=== PATIENT | female | born 1960 | race Asian ===

== ENCOUNTER 2016-08-17 04:19 | Emergency (ER) | payer OTHER ==
[~2016-08-17] VITALS: Ht 160 cm; Wt 54.4 kg
[2016-08-17 04:38] VITALS: BP_SYST 143
[2016-08-17 05:04] LABS: BASOPHILS % (AUTO) 0.9 % (0.0-2.0); EOSINOPHILS # (AUTO) 0.2 K/uL (0.0-0.4); EOSINOPHILS % (AUTO) 2.9 % (0.0-4.0); HEMATOCRIT 38.3 % (36-48); HEMOGLOBIN 12.6 g/dL (12.0-16.0); LYMPHOCYTES # (AUTO) 2.6 K/uL (1.0-5.5); LYMPHOCYTES % (AUTO) 49.3 % (20.5-51.5); MEAN CORPUSCULAR HEMOGLOBIN 31 pg (27-31); MEAN CORPUSCULAR HGB CONC 33 % (32-36); MEAN CORPUSCULAR VOLUME 93 fL (79.0-98.0); MONOCYTES # (AUTO) 0.3 K/uL (0.0-1.0); MONOCYTES % (AUTO) 6.4 % (1.7-9.3); NEUTROPHILS # (AUTO) 2.2 K/uL (1.8-7.7); NEUTROPHILS % (AUTO) 40.5 % (40.0-70.0); PLATELET COUNT (AUTO) 265 K/uL (130-430); RED BLOOD CELL COUNT(AUTO) 4.12 MIL/uL (4.2-6.2); RED CELL DISTRIBUTION WIDTH 12.2 % (9.0-15.0); WHITE BLOOD COUNT (AUTO) 5.3 K/uL (4.8-10.8)
[2016-08-17 05:10] LABS: ANION GAP 5 (5-15); CHLORIDE 108 mmol/L (98-107); CREATININE 0.64 mg/dL (0.55-1.30); GLUCOSE 108 mg/dL (70-99); POTASSIUM 3.9 mmol/L (3.5-5.1); SODIUM SERUM 143 mmol/L (136-145); UREA NITROGEN, BLOOD 12 mg/dL (8-21)
[2016-08-17 05:18] LABS: ALANINE AMINOTRANSFERASE 31 U/L (12-78); ALBUMIN 3.5 g/dL (3.4-4.8); ASPARTATE AMINOTRANSFERASE 23 U/L (10-37); TOTAL BILIRUBIN 0.4 mg/dL (0.0-1.0); TOTAL PROTEIN, SERUM 6.7 g/dL (6.4-8.3)
[2016-08-17 05:19] LABS: GFR AFRICAN AMERICAN 124 mL/min (>90)
[2016-08-17] MEDS: PROCHLORPERAZINE EDISYLATE 10 MG/2 ML VIAL IVP ONE (05:23)
[2016-08-17] MEDS: LORazepam 2 MG/ML VIAL (FOR ER USE) IVP ONE (05:23)
[2016-08-17] MEDS: ACETAMINOPHEN 500 MG TABLET PO ONE (05:23)
[2016-08-17] MEDS: NACL 0.9% 1,000 ML IV ONE (05:24)
[2016-08-17 06:10] VITALS: BP_SYST 140
== END 2016-08-17 06:10 | disposition home or self-care (01) ==
LOC: SED 04:19
DX: G44.209 Tension-type headache, unspecified, not intractable (principal); B34.9 Viral infection, unspecified; F41.9 Anxiety disorder, unspecified; E78.5 Hyperlipidemia, unspecified
CPT/HCPCS: 36415; 80053; 84484; 85025; 93005; 96361; 96374; 96375; 99285; J0780; J2060; J7030